=== PATIENT | female | born 1950 | race Caucasian/White ===

== ENCOUNTER → 2018-08-01 | Outpatient (CLI) | payer BC | LOC: MC.RAD 16:20 | DX: Z12.31 Encounter for screening mammogram for malignant neoplasm of breast (principal); N63.11 Unspecified lump in the right breast, upper outer quadrant ==

== ENCOUNTER → 2018-08-07 | Outpatient (CLI) | payer BC | LOC: MC.RAD 13:55 | DX: N63.10 Unspecified lump in the right breast, unspecified quadrant (principal); Z98.82 Breast implant status ==

== ENCOUNTER → 2018-08-29 | Outpatient (CLI) | payer BC ==
[~2018-08-29] MED LIST: BENICAR HCT 251 TAB PO; MOTRIN 200200 MG/TAB PO; NORCO 325 MG-51 TAB PO; NORVASC 5MG5 MG/TAB PO; TOPROL XL 50MG50 MG PO; ZOCOR 20MG20 MG PO
== END ==
LOC: COL.RAD 13:13
DX: C50.411 Malignant neoplasm of upper-outer quadrant of right female breast (principal)
CPT/HCPCS: A9541

== ENCOUNTER 2018-08-30 06:03 | Day surgery (SDC) | payer BC ==
[~2018-08-30] VITALS: Ht 162.6 cm; Wt 78.8 kg
[2018-08-30] VITALS (11 sets, daily range): BP systolic 114–147; BP diastolic 56–83; PULSE 44–84; TEMP 97.2–98.2
[2018-08-30] MEDS ORDERED: NORVASC 5MG5 MG/TAB PO (07:32)
[2018-08-30] MEDS ORDERED: BENICAR HCT 251 TAB PO (07:32)
[2018-08-30] MEDS ORDERED: TOPROL XL 50MG50 MG PO (07:33)
[2018-08-30] MEDS ORDERED: MOTRIN 200200 MG/TAB PO (07:33)
[2018-08-30] MEDS ORDERED: ZOCOR 20MG20 MG PO (07:33)
[2018-08-31 03:17] VITALS: BP 113/58; PULSE 63; TEMP 98.4
[2018-08-31 07:26] VITALS: BP 122/65; PULSE 59; TEMP 97.9
[2018-08-31 11:19] VITALS: BP 114/55; PULSE 71; TEMP 98.4
[2018-08-31] MEDS ORDERED: NORCO 325 MG-51 TAB PO (11:35)
== END 2018-08-31 12:29 | disposition home or self-care (01) ==
LOC: SDCO 06:03 → SURG 11:20 → SDCO 14:45
DX: C50.411 Malignant neoplasm of upper-outer quadrant of right female breast (principal); Z17.0 Estrogen receptor positive status [ER+]; I10 Essential (primary) hypertension; E78.00 Pure hypercholesterolemia, unspecified; C96.9 Malignant neoplasm of lymphoid, hematopoietic and related tissue, unspecified; Z80.3 Family history of malignant neoplasm of breast; Z88.1 Allergy status to other antibiotic agents; Z83.3 Family history of diabetes mellitus; Z82.3 Family history of stroke; Z82.49 Family history of ischemic heart disease and other diseases of the circulatory system; Z88.9 Allergy status to unspecified drugs, medicaments and biological substances
CPT/HCPCS: OP; J0690; J1100; J2250; J2405; J2704; J2795; J3010; J7120

== ENCOUNTER → 2018-10-07 | Outpatient (CLI) | payer BC | LOC: COL.VAS 12:04 | DX: Z51.11 Encounter for antineoplastic chemotherapy (principal); C50.411 Malignant neoplasm of upper-outer quadrant of right female breast; I51.7 Cardiomegaly ==

== ENCOUNTER → 2018-11-20 | Outpatient (CLI) | payer BC, MEDICARE | LOC: COL.VAS 13:11 | DX: Z13.6 Encounter for screening for cardiovascular disorders (principal); C50.411 Malignant neoplasm of upper-outer quadrant of right female breast; I82.811 Embolism and thrombosis of superficial veins of right lower extremity ==

== ENCOUNTER → 2019-08-26 | Outpatient (CLI) | payer BC, MEDICARE | LOC: MC.RAD 09:42 | DX: Z12.31 Encounter for screening mammogram for malignant neoplasm of breast (principal); C50.411 Malignant neoplasm of upper-outer quadrant of right female breast; I10 Essential (primary) hypertension; Z90.11 Acquired absence of right breast and nipple ==

== ENCOUNTER → 2020-11-30 | Outpatient (CLI) | payer MEDICARE | LOC: COL.VAS 08:30 | DX: M79.89 Other specified soft tissue disorders (principal); Z85.3 Personal history of malignant neoplasm of breast ==

== ENCOUNTER → 2021-03-02 | Outpatient (CLI) | payer MEDICARE | LOC: MC.RAD 09:48 | DX: Z12.31 Encounter for screening mammogram for malignant neoplasm of breast (principal); Z90.11 Acquired absence of right breast and nipple; Z85.3 Personal history of malignant neoplasm of breast ==

== ENCOUNTER 2021-04-24 14:31 | Emergency (ER) | payer MEDICARE ==
[~2021-04-24] VITALS: Ht 162.6 cm; Wt 81.8 kg
[2021-04-24 14:55] VITALS: BP 96/59; TEMP 97.7
[2021-04-24 17:02] VITALS: PULSE 78
== END 2021-04-24 17:02 | disposition home or self-care (01) ==
LOC: COL.ER 14:31
DX: S52.572A Other intraarticular fracture of lower end of left radius, initial encounter for closed fracture (principal); W01.0XXA Fall on same level from slipping, tripping and stumbling without subsequent striking against object, initial encounter